=== PATIENT | female | born 1990 | race Caucasian/White ===

== ENCOUNTER 2022-08-28 08:08 | Emergency (ER) | payer MEDICAID, SELFPAY ==
--- NOTE | ~2022-08-28 | US_ITS ---
EXAMINATION: US pelvic complete DATE: 08/28/2022 10:19 INDICATION: Suprapubic abdominal pain TECHNIQUE: Multiple transabdominal sonographic images of the pelvis were obtained. COMPARISON: None. FINDINGS: The uterus measures 7.0 x 4.0 x 4.8 cm. The endometrial complex measures 2 mm in thickness. The righ t ovary measures 3.2 x 1.6 x 1.8 cm. The left ovary measures 3.4 x 2.1 x 1.8 cm. A few subcentimeter follicles are seen at both ovaries vascular flow with arterial waveforms identified in both ovaries o n color Doppler. Very small amount of likely physiologic free fluid in the cul-de-sac. IMPRESSION: 1. Normal pelvic ultrasound. Reviewed, dictated and finalized at location A.
--- NOTE | ~2022-08-28 | CT_ITS ---
EXAMINATION: CT abdomen pelvis w con DATE: 08/28/2022 09:41 INDICATION: Suprapubic abdominal pain TECHNIQUE: Computed tomography (CT) of the abdomen and pelvis was performed with 100 mL Omnipaque-350 intravenous contrast. Automated exposure control and iterative reconstruction technique were employe d. The dose-length product was 399.20 mGy-cm. COMPARISON: None FINDINGS: Mild dependent atelectasis in bilateral lower lobes. Heart size is normal. No pericardial or pleural effusion. 5 mm hepatic cyst. Gallbladder, spleen, pancreas, bilateral adrenal glands and right kidney are normal. Subcentimeter cyst versus calyceal diverticulum at the upper pole of the left kidney. St atus post appendectomy with a few surgical clips along the ileocolic mesentery in the right lower jerald drant. No bowel obstruction. Bladder, uterus and bilateral adnexa are unremarkable. Minimal likely ph ysiologic free fluid in the cul-de-sac. No abscess or free intraperitoneal gas. No pathologically enl arged abdominal or pelvic lymphadenopathy. A a few sclerotic bone islands are specifically to margins in the pelvis. IMPRESSION: 1. No acute intra-abdominal/pelvic process. Reviewed, dictated and finalized at location A.
[2022-08-28 08:18] VITALS: BP 126/82; PULSE 96; RESP 16; TEMP 36.8; O2SAT 100
--- NOTE | 2022-08-28 08:36 | ED.ABDPAIN ---
HPI - Abdominal Pain General Chief Complaint: Abdominal Pain Stated Complaint: abd pain Time Seen by Provider: 08/28/22 08:17 History of Present Illness HPI narrative: This is a 32-year-old female, with past history of autism spectrum disorder, chronic pain, visiting from an outside state, who presents emergency department complaining of suprapubic abdominal pain for the past day. She describes her pain as twisting and dull, rated 8/10 and nonradiating. She denies abnormal vaginal discharge or bleeding. She states her last menstrual period was 2 weeks ago and lasted approximately 2 weeks off-and-on. This is associated with some nausea. She has no other complaints today. Related Data Allergies Allergy/AdvReac Type Severity Reaction Status Date / Time hydromorphone [From Dilaudid] Allergy Nausea and Verified 08/28/22 08:37 Vomiting sulfamethoxazole Allergy Rash Verified 08/28/22 08:37 [From Bactrim] trimethoprim [From Bactrim] Allergy Rash Verified 08/28/22 08:37 Review of Systems Review of Systems: CONSTITUTIONAL: Denies fever, chills, or sweats. CARDIOVASCULAR: Denies chest pain, palpitations, or edema. RESPIRATORY: Denies cough or dyspnea. GASTROINTESTINAL: Suprapubic abdominal pain and nausea denies vomiting, or diarrhea. GENITOURINARY: Denies dysuria or hematuria. SKIN: Denies rash or itching. MUSCULOSKELETAL: Denies back pain, joint pain, or myalgia. NEUROLOGIC: Denies headache, numbness, dizziness, or weakness. PSYCHIATRIC: Denies anxiety or depression. PMFSH Past Medical History Medical History (Updated 08/28/22 @ 11:41 by Maulik Guaman MD) Autism spectrum disorder Surgical History Surgical History (Updated 08/28/22 @ 08:38 by Maulik Guaman MD) History of appendectomy Social History Social History (Updated 08/28/22 @ 08:38 by Maulik Guaman MD) Smoking status: Never smoker Alcohol intake: never Substance use: never Exam Narrative: GENERAL: Well-developed, well-nourished, appears uncomfortable HEAD: Normocephalic, atraumatic. EYES: PERRLA and EOMI. ENT: Nares clear, no rhinorrhea or epistaxis. Mucous membranes moist. Oropharynx without tonsillar hypertrophy exudate or other lesions. CHEST: Clear to auscultation. No respiratory distress. No wheezes rales or rhonchi HEART: Regular rate and rhythm. No murmur heard. Normal peripheral pulses. ABDOMEN: Soft, suprapubic tenderness to palpation in the midline and the left lower quadrant without rebound or guarding, nondistended, normal active bowel sounds. EXTREMITIES: Normal range of motion. No edema. SKIN: Warm, dry, no rash. NEURO: No focal deficits. Alert and oriented x3. PSYCH: Normal mood and affect. Course Course Emergency Course: 11:39 - CT abdomen pelvis negative for acute intra-abdominal process. UA not concerning for UTI. CBC unremarkable. Chemistries unremarkable. Ultrasound negative for normal intra-abdominal fluid or ovarian torsion. test negative. I suspect gastroenteritis as a cause of the patient's pain. Will discharge with recommendation for Tylenol and primary care follow-up. Discussed return and emergency precautions including signs and symptoms of acute abdomen and intractable vomiting. The patient voiced understanding and are comfortable with the plan. All questions answered to her satisfaction. Vital Signs Vital signs: Vital Signs Temperature 98.2 F 08/28/22 08:18 Pulse Rate 96 08/28/22 08:18 Respiratory Rate 16 08/28/22 08:18 Blood Pressure 126/82 08/28/22 08:18 Pulse Oximetry 100 08/28/22 08:18 Temperature 98.2 F 08/28/22 08:18 Pulse Rate 96 08/28/22 08:18 Respiratory Rate 16 08/28/22 08:18 Blood Pressure 126/82 08/28/22 08:18 Pulse Oximetry 100 08/28/22 08:18 MDM - Abdominal Pain MDM Narrative Medical decision making narrative: Plan: Labs, imaging, pain control, test, reassess Differential Diagnosis D
[2022-08-28 08:38] LABS: Basophils Percent Auto 0.5 % (0.2-1.2); Eosinophils Absolute Auto 0.3 K/mm3 (0-0.3); Eosinophils Percent Auto 5.5 % (0-4.4); Hematocrit 40.5 % (37.0-47.0); Hemoglobin 13.2 g/dL (12.0-15.0); Immature Granulocyte Absolute 0.02 K/mm3 (0.00-0.031); Immature Granulocyte Percent A 0.3 % (0-0.5); Lymphocytes Absolute Auto 2.07 K/mm3 (0.9-3.2); Lymphocytes Percent Auto 34.3 % (18.3-44.2); Mean Corpuscular HGB Conc 32.6 g/dl (32-36); Mean Corpuscular Hemoglobin 31.4 pg (26-34); Mean Corpuscular Volume 96.4 fl (80-100); Mean Platelet Volume 10.2 fl (7.4-10.4); Monocytes Absolute Auto 0.5 K/mm3 (0.1-0.6); Monocytes Percent Auto 7.9 % (2.6-8.5); Neutrophils Absolute Auto 3.1 K/mm3 (1.3-6.7); Neutrophils Percent Auto 51.5 % (45.5-73.1); Platelet Count Result 201 k/mm3 (150-375); Red Cell Distribution Width 12.7 % (11.5-14.5)
[2022-08-28] MEDS: LACTATED RINGERS 1,000 ML 999 ML IV CONT (08:40)
[2022-08-28] MEDS: ONDANSETRON INJ 4 MG/2 ML VIAL IV PUSH (08:41)
[2022-08-28] MEDS: MORPHINE SULFATE (*CRX) 4 MG/ML INJ IV PUSH (08:41)
[2022-08-28 08:47] LABS: Alanine Aminotransferase 22 U/L (6-35); Albumin Level 4.3 g/dL (3.5-5.1); Alkaline Phosphatase 98 U/L (38-126); Anion Gap 5 mmol/L (8-16); Aspartate Amino Transferase 24 U/L (14-36); Bilirubin,Total 0.3 mg/dL (0.2-1.3); Blood Urea Nitrogen 12 mg/dL (7-17); Calcium 9.1 mg/dL (8.4-10.2); Carbon Dioxide 29 mmol/L (22-30); Chloride 105 mmol/L (98-107); Estimated CRCL calculation 98 ml/min; Estimated Glomerular Filt Rate > 60; Glucose 93 mg/dL (65-110); Lipase 88 U/L (23-300); Potassium 3.7 mmol/L (3.4-5.0); Sodium 139 mmol/L (137-145)
[2022-08-28 08:48] LABS: Lactic Acid Reflex 0.9 mmol/L (0.7-2.0)
[2022-08-28 11:04] LABS: Appearance Urine Clear (Clear); Bilirubin Urine Negative (Negative); Blood Urine Negative (Negative); Color Urine Yellow (Yellow); Glucose Urine UA Negative (Negative); Ketones Urine Negative (Negative); Leukocyte Esterase Ur Negative LEU/UL (Negative); Nitrate Urine Negative (Negative); Protein Urine Negative (Negative); Urobilinogen Urine 0.2 mg/dL (<2.0); pH Urine 6.5 (5.0-9.0)
[2022-08-28 11:07] LABS: Specific Grav Ur 1.041 (1.001-1.035)
[2022-08-28 11:08] LABS: Add Urine Microscopic? NO
[2022-08-28 11:55] VITALS: BP 119/73; PULSE 82; O2SAT 99
== END 2022-08-28 11:56 | disposition home or self-care (01) ==
PROVIDERS: Emergency Provider Preventive Medicine Aerospace Medicine
DX: K52.9 Noninfective gastroenteritis and colitis, unspecified (principal); R10.2 Pelvic and perineal pain
CPT/HCPCS: 36415; 74177; 76856; 80053; 81003; 81025; 83605; 83690; 85025; 96361; 96374; 96375; 99284; J2270; J2405; J7120; Q9967